=== PATIENT | male | born 1995 | race Two or more races ===

== ENCOUNTER 2018-09-24 09:36 | Emergency (ER) | payer SELFPAY ==
[~2018-09-24] VITALS: Ht 182.9 cm; Wt 82.0 kg
[2018-09-24 09:42] VITALS: BP 136/82
== END 2018-09-24 12:43 | disposition left against medical advice (07) ==
LOC: ER 12:42
DX: Z53.21 Procedure and treatment not carried out due to patient leaving prior to being seen by health care provider (principal)